=== PATIENT | male | born 1955 | race Caucasian/White ===

== ENCOUNTER → 2016-10-04 | Outpatient (CLI) | payer BC ==
[2011-01-14 12:15] VITALS: BP 15/63
[2016-10-04 17:31] LABS: ASPARTATE AMINO TRANSFERASE 33 IU/L (21-57); BILIRUBIN,TOTAL 0.9 mg/dL (0.3-1.2); BLOOD UREA NITROGEN 14 mg/dL (7-22); CALCIUM 9 mg/dL (8.7-10.7); CHLORIDE 100 meq/L (98-112); CREATININE 0.8 mg/dL (0.70-1.50); EST GLOMERULAR FILTRATION > 60 (>60 ml/min/1.73m(2)); GLUCOSE 82 mg/dL (78-110); POTASSIUM 4.6 meq/L (3.8-5.2); SODIUM 139 meq/L (135-145); TOTAL PROTEIN 6.8 g/dL (6.1-8.0)
== END ==
LOC: LAB 10:20
PROVIDERS: ATTEND Physician Assistant Medical
DX: I25.10 Atherosclerotic heart disease of native coronary artery without angina pectoris (principal); I10 Essential (primary) hypertension; E78.5 Hyperlipidemia, unspecified; Z12.5 Encounter for screening for malignant neoplasm of prostate
CPT/HCPCS: 80053; G0103

== ENCOUNTER → 2016-10-10 | Outpatient (CLI) | payer BC ==
[2011-01-14 12:15] VITALS: BP 15/63
[2016-10-10 15:48] LABS: LDL CHOLESTEROL,CALCULATED 103.2 mg/dL
== END ==
LOC: LAB 08:28
PROVIDERS: ATTEND Physician Assistant Medical
DX: E78.2 Mixed hyperlipidemia (principal)
CPT/HCPCS: 80061